=== PATIENT | male | born 1960 | race African-American/Black ===

== ENCOUNTER 2017-09-04 18:16 | Emergency (ER) | payer OTHER ==
[~2017-09-04] VITALS: Wt 115.0 kg
[~2017-09-04 18:16] MED LIST: ASPI81TA3 PO; ATOR40TA68 PO; CARV12.598 PO; COU10 PO; FURO40TA4 PO; HYDR-3498 PO; LISI10TA2 PO; POTA20TA96 PO
[2017-09-04] MEDS ORDERED: NITROGLYCERIN 2% 1 GM OINT PKT TD STA (18:22)
[2017-09-04] MEDS ORDERED: NITROGLYCERIN (SL) 0.4 MG TAB SL PRN (18:30)
--- NOTE | 2017-09-04 18:43 | RADRPT ---
PROCEDURE: XR Chest. CLINICAL INDICATION: Chest pain. TECHNIQUE: AP Portable chest. COMPARISON: 07/22/2016 chest x-ray FINDINGS: The soft tissues and bones are remarkable for a combination left precordial AICD and pacemaker. No focal infiltrates, masses, or effusions are noted. The mediastinum and heart are remarkable for mil d cardiomegaly. No pneumothorax is present. IMPRESSION: 1. No radiographic evidence for acute cardiopulmonary disease 2. Mild cardiomegaly 3. Combination left precordial AICD and pacemaker RPTAT: HDC .Catia Fernandez MD, Date Time Electronically viewed and signed by .Catia Fernandez MD, on 09/04/2017 18:43 .C/
[2017-09-04 18:44] LABS: BASOPHILS % 0.2 % (0.0-2.0); EOSINOPHILS # 0.2 10^3/ul (0.0-0.5); EOSINOPHILS % 2.7 % (0.0-7.0); HEMATOCRIT 35.7 % (42.0-52.0); HEMOGLOBIN 11.5 g/dl (14.0-18.0); LYMPHOCYTES # 2.3 10^3/ul (0.8-2.9); LYMPHOCYTES % 37.4 % (15.0-51.0); MEAN CORPUSCULAR HEMOGLOBIN 24.9 pg (29.0-33.0); MEAN CORPUSCULAR HGB CONC 32.2 g/dl (32.0-37.0); MEAN CORPUSCULAR VOLUME 77.3 fl (82.0-101.0); MEAN PLATELET VOLUME 9.9 fl (7.4-10.4); MONOCYTE # 0.5 10^3/ul (0.3-0.9); MONOCYTES % 7.4 % (0.0-11.0); NEUTROPHIL # 3.2 10^3/ul (1.6-7.5); PLATELET COUNT 188 10^3/UL (140-415); RED BLOOD COUNT 4.62 10^6/ul (4.70-6.10); RED CELL DISTRIBUTION WIDTH 19.4 % (11.5-14.5); WHITE BLOOD COUNT 6.2 10^3/ul (4.8-10.8)
[2017-09-04 19:10] LABS: CALCIUM 9.3 mg/dl (8.4-10.2); CREATININE 1.34 mg/dl (0.61-1.24); POTASSIUM 3.1 mmol/L (3.5-5.1)
[2017-09-04 19:21] LABS: TROPONIN-I 0.046 ng/ml (0.00-0.12)
[2017-09-04] MEDS ORDERED: LEVE-5 PO (19:28)
[2017-09-04] MEDS ORDERED: NITR0.4T32 SL (19:29)
[2017-09-04] MEDS ORDERED: FURO20TA3 PO (19:29)
[2017-09-04] MEDS ORDERED: CARV6.2579 PO (19:30)
[2017-09-04] MEDS ORDERED: FAMO20TA18 PO (19:30)
[2017-09-04] MEDS ORDERED: ATOR80TA75 PO (19:31)
[2017-09-04] MEDS ORDERED: LISI10TA2 PO (19:31)
[2017-09-04] MEDS ORDERED: POTASSIUM CHLORIDE (SR) 20 MEQ TAB PO STA (19:49)
--- NOTE | 2017-09-04 19:53 | ERA ---
ER Documentation Chief Complaint Date/Time DATE: 09/04/17 TIME: 19:51 [facility] NO SIGNS OF N/V. MILD SOB. NEG STEMI HPI Patient is a 57-year-old male with coronary disease, CHF, and hypertension who presents with chest pain. The patient was brought in by ambulance. He was given aspirin by paramedics. He said his chest pain started at 2 PM and has been constant and a 6 out of 10 pain. He was spitting up some yellow sputum as well. Upon review of old medical records the patient has multiple visits to the ER for chest pain and CHF. His primary doctor is Dr. Valero. ROS All systems reviewed and are negative except as per history of present illness. Medications Home Meds Reported Medications Lisinopril* (Lisinopril*) 10 Mg Tablet, 10 MG PO BID, #30 TAB 09/04/17 Atorvastatin* (Atorvastatin*) 80 Mg Tablet, 80 MG PO DAILY, #30 TAB 09/04/17 Carvedilol* (Carvedilol*) 6.25 Mg Tablet, 6.25 MG PO BID, #60 TAB 09/04/17 Famotidine* (Famotidine*) 20 Mg Tablet, 20 MG PO BID, #60 TAB 09/04/17 Furosemide* (Furosemide*) 20 Mg Tablet, 20 MG PO TID, #60 TAB 09/04/17 Nitroglycerin* (Nitroglycerin* SL) 0.4 Mg Tab.subl, 0.4 MG SL Q5MIN Y for CHEST PAIN, BOTTLE 09/04/17 Levetiracetam* (Keppra*) 500 Mg Tablet, 500 MG PO BID, TAB 09/04/17 Discontinued Reported Medications Potassium Chloride* (Potassium Chloride*) 20 Meq Tablet.er, 20 MEQ PO DAILY, TAB.SA 07/22/16 Lisinopril* (Lisinopril*) 10 Mg Tablet, 10 MG PO DAILY, TAB 07/22/15 Discontinued Scripts Warfarin Sodium (Coumadin) 10 Mg Tablet, 10 MG PO DAILY, #30 TAB Prov:SHERRILL MONTAGUE PA-C 08/11/15 Furosemide* (Furosemide*) 40 Mg Tablet, 40 MG PO DAILY, #30 TAB Prov:SHERRILL MONTAGUE PA-C 08/11/15 Atorvastatin* (Atorvastatin*) 40 Mg Tablet, 40 MG PO HS, #30 TAB Prov:SHERRILL MONTAGUE PA-C 08/11/15 Aspirin* (Aspirin* Chew) 81 Mg Tab.chew, 81 MG PO DAILY, #30 TAB.CHEW Prov:SHERRILL MONTAGUE PA-C 08/11/15 Hydrocodone Bit-Acetaminophen* ([place]*) 5-325 Mg Tab, 1 TAB PO q6h Y for q6h, # 20 TAB Prov:OSORIO YING MD 07/31/15 Carvedilol* (Coreg*) 12.5 Mg Tab, 12.5 MG PO Q12, #60 TAB Prov:OSORIO YING MD 07/31/15 Allergies Allergies: Coded Allergies: No Known Allergy (Unverified , 09/04/17) PMhx/Soc History of Surgery: No Anesthesia Reaction: No Hx Neurological Disorder: No Hx Respiratory Disorders: Yes Hx Cardiac Disorders: Yes Hx Psychiatric Problems: No Hx Miscellaneous Medical Probl: No Hx Alcohol Use: No Hx Substance Use: Yes Hx Tobacco Use: No Smoking Status: Never smoker FmHx Family History: coronary disease Physical Exam Vitals Vital Signs Date Time Temp Pulse Resp B/P Pulse Ox O2 Delivery O2 Flow Rate FiO2 09/04/17 19:08 98.5 81 20 116/76 97 Room Air 09/04/17 18:23 98.5 78 20 157/85 97 Physical Exam Const: Mild distress secondary to chest pain Head: Atraumatic Eyes: Normal Conjunctiva ENT: Normal External Ears, Nose and Mouth. Neck: Full range of motion..~ No meningismus. Resp: Clear to auscultation bilaterally Cardio: Regular rate and rhythm, no murmurs Abd: Soft, non tender, non distended. Normal bowel sounds Skin: No petechiae or rashes Back: No midline or flank tenderness Ext: 1+ pitting edema bilaterally Neur: Awake and alert Psych: Normal Mood and Affect Result Diagram: 09/04/17 1831 09/04/17 1831 Results 24 hrs Laboratory Tests Test 09/04/17 18:31 White Blood Count 6.210^3/ul Red Blood Count 4.6210^6/ul Hemoglobin 11.5g/dl Hematocrit 35.7% Mean Corpuscular Volume 77.3fl Mean Corpuscular Hemoglobin 24.9pg Mean Corpuscular Hemoglobin Concent 32.2g/dl Red Cell Distribution Width 19.4% Platelet Count 46109^3/UL Mean Platelet Volume 9.9fl Neutrophils % 52.0% Lymphocytes % 37.4% Monocytes % 7.4% Eosinophils % 2.7% Basophils % 0.2% Nucleated Red Blood Cells % 0.0/100WBC Neutrophils # 3.210^3/ul Lymphocytes # 2.310^3/ul Monocytes # 0.510^3/ul Eosinophils # 0.210^3/ul Basophils # 0.010^3/ul Nucleated Red Blood Cells # 0.010^3/ul Sodium Level 143mmol/L Potassium Level 3.1mmol/L Chloride Level 108mmol/L Carbon Dioxide Level 27mmol/L Anion Gap 11 Blood Urea Nitrogen 13mg/dl Creatinine 1.34mg/dl Glucose Level 119mg/dl Calcium Level 9.3mg/dl Troponin I 0.046ng/ml Current Medications Medications (Trade) Dose Ordered Sig/Peg Route PRN Reason Start Time Stop Time Status Last Admin Dose Admin Nitroglycerin (Nitroglycerin 2% Oint) 1 inch ONCE STAT TD 09/04/17 18:22 09/04/17 18:23 DC 09/04/17 18:47 Nitroglycerin (Nitroglycerin (Sl Tab) 0.4 Mg) 1 tab Q5M UP TO 3 DOSES PRN SL CHEST PAIN 09/04/17 18:30 09/04/17 18:47 Potassium Chloride (Klor-Con 20) 40 meq ONCE STAT PO 09/04/17 19:49 09/04/17 19:50 UNV Procedures/MDM EKG read by me: Rate/Rhythm: Regular rate and rhythm at a normal rate Intervals: Normal Impression: Sinus rhythm with S waves in leads II and III, poor R-wave progression Chest x-ray shows no pneumonia or pneumothorax per radiology. Patient is a 57-year-old male with cardiac risk factors who presents with chest pain. He was given aspirin nitroglycerin. He has a troponin which was within normal limits but his EKG is abnormal. There is no ST elevations or depressions. Chest x-ray shows no pneumonia or pneumothorax. At this point I am concerned for acute coronary syndrome. I doubt pneumonia, pneumothorax, pulmonary embolism, or aortic dissection. I spoke with Dr. Castaneda from [facility] but given the fact the patient has [facility] insurance he will need transfer to [facility] for cardiac workup. The case technician from [facility] will help to assist with the transfer at this time. Departure Diagnosis: Primary Impression: CHF (congestive heart failure) Qualified Code: I50.9 - Acute congestive heart failure, unspecified congestive heart failure type Additional Impression: Chest pain Qualified Code: R07.9 - Chest pain, unspecified type Condition: MAITE Casillas MD Sep 04, 2017 19:53
[2017-09-04 19:59] VITALS: BP 126/81; PULSE 76; RESP 19; TEMP 98.5
[2017-09-05 01:34] LABS: TROPONIN-I 0.049 ng/ml (0.00-0.12)
[2017-09-05 02:00] LABS: CK-MB 1.03 ng/ml (0.0-2.4)
== END 2017-09-05 01:14 | disposition short-term general hospital (02) ==
LOC: E/R 18:16
DX: I50.9 Heart failure, unspecified (principal); I25.10 Atherosclerotic heart disease of native coronary artery without angina pectoris; Z79.01 Long term (current) use of anticoagulants; Z79.82 Long term (current) use of aspirin
CPT/HCPCS: 36415; 71010; 80048; 82550; 82553; 84484; 85025; Z7502; Z7610

== ENCOUNTER 2018-01-15 13:28 | Observation (INO) | END 2018-01-16 16:48 | disposition home or self-care (01) ==

== ENCOUNTER 2018-04-16 17:17 | Emergency (ER) | END 2018-04-17 09:34 | disposition home or self-care (01) ==

== ENCOUNTER 2018-04-21 21:58 | Emergency (ER) | END 2018-04-21 23:45 | disposition home or self-care (01) ==

== ENCOUNTER 2018-04-24 21:24 | Inpatient (IN) | END 2018-05-02 14:20 | disposition home or self-care (01) | DRG 291 ==

== ENCOUNTER 2018-05-04 22:44 | Emergency (ER) | END 2018-05-05 05:34 | disposition home or self-care (01) ==